=== PATIENT | female | born 1975 | race African-American/Black ===

== ENCOUNTER 2021-09-12 11:30 | Outpatient (RCR) | payer OTHER, SELFPAY ==
--- NOTE | 2021-08-18 13:51 | HP.PTEVAL ---
Patient's Visit Information KYRA YIP is a 46 year old F referred to Physical Therapy by RAMON Fuentes with a diagnosis of R lateral epicondylitis. Date of Evaluation: 08/18/21 Physical Therapist: Jraed Orr, PT, ATC - Visit Plan Frequency: 2-3x /Week Duration: 4 Weeks Plan: R wrist stretching, DTR, dry needling, eccentric strengthening, and HEP - Subjective Pt reports she has had R elbow pain for the past 5 months. Pt notes her pain has improved since that time, but Pt notes she enjoys working out and is very limited as a result of this pain. Pt denies any prior Hx. Pt reports she has difficulty with exercising and other IADL's. No tingling or numbness at this time. Pt is R hand dominant. Pt notes she has difficulty with carrying her backpack secondary to R elbow pain. Pt has not had any treatments at this time. Pt reports her pain is better today because swhe hasnt been exercising lately. Pt reports she had an xray recently which revealed minor OA. No sleep difficulty secondary to pain. 0/10 pain while at rest, 5/10 pain at worst (after an exercise session) - Pain R elbow Pain Intensity (Out of 10): 0 Pain Intensity Range: 5 - Objective Neuro: B UE sensation is WNL to light touch. B bicepital reflex= 2/3. Wrist ROM: L wrist flex= 70, ext= 65; R wrist flex= 65, ext= 55. MMT: L Wrist flex= 21, ext= 20; R wrist flex= 15, ext= 11 #F. Palpation: Pt is very sore along the lateral epicondyle. No obvious deformity at this time. - Balance/Special Test Scores Quick DASH Score: 15.9075 - Goals Goal 1:: Decrease R elbow pain x 50% to aid with IADL's Goal Time Frame: 4-6 Weeks Goal 2:: Increase R wrist flexion ROM x 5 degrees to aid with decreasing R elbow pain Goal Time Frame: 4-6 Weeks Goal 3:: Increase R wrist extension strength x 5#F to aid with IADL's Goal Time Frame: 4-6 Weeks Goal 4:: I with HEP Goal Time Frame: 4-6 Weeks - Rehabilitation Potential Physical Therapy Diagnosis: Pt has R wrist weakness, limited flexibility, and pain secondary to R lateral epicondylitis Rehabilitation Potential: Good - Anticipated Interventions Patient/Client Instruction: Educate patient on: Condition, Plan of Care For the Purpose of:: To improve self management Therapeutic Exercise to Include: Strength training, Flexibilty training, Passive ROM, Active ROM For the Purpose of:: To decrease pain, To increase ROM, To improve muscle performance and motor function Manual Therapy Techniques to Include: Soft tissue mobilization For the Purpose of:: To decrease pain, To increase ROM Thank you for the opportunity to evaluate your patient. For Medicare and Medicare HMO plans, please review the plan of care and approve it. It will need to be FAXED BACK to us at [phone] for Medicare purposes. For Medicare only, by signing this I certify the plan of care. Please let me know if there are questions or concerns regarding this plan of care. Physician Signature: Date:
--- NOTE | 2021-11-15 12:35 | HP.PT.NRP ---
KYRA YIP was seen in my office for initial evaluation on 08/18/21. The following Plan of Care was established for this patient: Initial Frequency: 2-3x /Week Initial Duration: 4 Weeks Patient/Client Instruction: Educate patient on: Condition, Plan of Care For the Purpose of:: To improve self management Therapeutic Exercise to Include: Strength training, Flexibilty training, Passive ROM, Active ROM For the Purpose of:: To decrease pain, To increase ROM, To improve muscle performance and motor function Manual Therapy Techniques to Include: Soft tissue mobilization For the Purpose of:: To decrease pain, To increase ROM This patient was last seen in our office . Pertinent comments regarding their Physical therapy will appear below: Pt was treated for 6 PT visits for R lateral epicondylitis through the date of 09/12/21. Pt has not returned through this date and is discontinued at this time. At this point I will be discontinuing this patient from physical therapy. I would be happy to see this patient again in the future if found appropriate by the physician. Thank you! Jared Orr, PT, ATC Balance/Gait/Functional tests - Balance/Special Test Scores Quick DASH Score: 15.9075
== END 2021-09-12 19:00 | disposition home or self-care (01) ==
LOC: PT 11:30
PROVIDERS: PCP Internal Medicine; Referring Provider Physician Assistant Surgical; Visit Provider Physician Assistant Surgical
DX: M77.11 Lateral epicondylitis, right elbow (principal)
CPT/HCPCS: 97110; 97140; 97161

== ENCOUNTER 2022-12-26 13:00 | Outpatient (RCR) | payer SELFPAY | END 2022-12-26 19:00 | disposition home or self-care (01) | LOC: PT 13:00 | PROVIDERS: PCP Internal Medicine | DX: Z00.00 Encounter for general adult medical examination without abnormal findings (principal) ==

== ENCOUNTER 2024-08-14 13:33 | Outpatient (RCR) | payer BC, SELFPAY | END 2024-08-14 19:00 | disposition home or self-care (01) | LOC: PT 13:33 | PROVIDERS: PCP Internal Medicine; Referring Provider Physician Assistant; Visit Provider Physician Assistant | DX: M70.52 Other bursitis of knee, left knee (principal); M51.360 Other intervertebral disc degeneration, lumbar region with discogenic back pain only; M54.16 Radiculopathy, lumbar region ==